=== PATIENT | female | born 1985 | race Caucasian/White ===

== ENCOUNTER 2023-01-16 23:42 | Emergency (ER) | payer SELFPAY ==
[~2023-01-16] VITALS: Wt 57.7 kg
== END 2023-01-17 00:03 | disposition home or self-care (01) ==
LOC: ED 23:42
DX: S00.81XA Abrasion of other part of head, initial encounter (principal); W55.03XA Scratched by cat, initial encounter; Y93.89 Activity, other specified; Y92.89 Other specified places as the place of occurrence of the external cause; Y99.8 Other external cause status